=== PATIENT | female | born 1940 | race Caucasian/White ===

== ENCOUNTER → 2016-11-15 | Outpatient (CLI) | payer MEDICARE, OTHER ==
[~2016-11-15] MED LIST: ACET-2321 PO; ATEN25TA PO; CALC600T12 PO; CHOL100017 PO; CYAN1TAB46 PO; LATA2.5D7 BOTH EYES; LORA0.5T86 PO; PROP28DR BOTH EYES; VIT1CAPS47 PO
== END ==
LOC: WC.BC 10:53
PROVIDERS: ATTEND Internal Medicine Hematology & Oncology
DX: C50.412 Malignant neoplasm of upper-outer quadrant of left female breast (principal); N64.59 Other signs and symptoms in breast
CPT/HCPCS: G0204; G0279